=== PATIENT | male | born 1980 | race Caucasian/White ===

== ENCOUNTER 2017-10-17 03:18 | Emergency (ER) | payer OTHER ==
[~2017-10-17] VITALS: Ht 180.3 cm; Wt 68.0 kg
--- NOTE | ~2017-10-17 | EKG ---
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
[~2017-10-17 03:18] MED LIST: CEFDINIR PO; FLONASE 0.05%50 MCG NS; PREDNISONE 20 M20 MG PO
[2017-10-17 04:58] LABS: HEMATOCRIT 45.7 % (42.0-52.0); HEMOGLOBIN 15.6 gm/dL (14.0-18.0); MCH 30.8 pg (26.0-34.0); MCHC 34.1 g/dL (28.0-37.0); MCV 90.4 fL (80.0-100.0); RBC 5.06 mil/uL (4.50-6.00); RDW 12.9 % (10.5-14.5); WBC 7.2 thou/uL (4.0-11.0)
[2017-10-17 05:26] LABS: CALCIUM 9.1 mg/dL (8.5-10.1); CREATININE 1.3 mg/dL (0.7-1.3); POTASSIUM 3.5 mmol/L (3.5-5.1)
[2017-10-17 05:27] LABS: MAGNESIUM 1.9 mg/dL (1.8-2.4)
== END 2017-10-17 06:27 | disposition home or self-care (01) ==
LOC: ER 03:18
PROVIDERS: Emergency Medicine
DX: R00.2 Palpitations (principal); R05 Cough; J45.909 Unspecified asthma, uncomplicated; Z88.0 Allergy status to penicillin; Z88.2 Allergy status to sulfonamides